=== PATIENT | female | born 1985 | race Caucasian/White ===

== ENCOUNTER → 2021-12-07 | Outpatient (CLI) | payer OTHER | LOC: RAD 15:01 | DX: M54.16 Radiculopathy, lumbar region (principal); M54.2 Cervicalgia | CPT/HCPCS: 72040; 72100 ==

== ENCOUNTER → 2022-03-09 | Outpatient (CLI) | payer OTHER | LOC: EMI 15:36 | DX: M48.02 Spinal stenosis, cervical region (principal); M50.822 Other cervical disc disorders at C5-C6 level | CPT/HCPCS: 72141 ==